=== PATIENT | male | born 1980 | race Caucasian/White ===

== ENCOUNTER → 2022-04-15 14:33 | Outpatient (CLI) | payer BC, SELFPAY ==
--- NOTE | ~2022-04-15 | MR_ITS ---
EXAMINATION: MR knee LT wo con DATE: 04/15/2022 15:09 INDICATION: Acute onset left knee pain TECHNIQUE: Magnetic resonance imaging (MRI) of the left knee was performed without intravenous contra st. Sequences included coronal PD-weighted FSE, coronal PD-weighted FS FSE, sagittal T2-weighted FSE , sagittal PD-weighted FS FSE and axial PD weighted fat saturated FSE. COMPARISON: None. FINDINGS: Medial compartment: Radial tear at the posterior horn of the medial meniscus. Partial-thickness cartilage with scattered partial thickness fissuring and chondral surface irregularity along the anterior to central weightbea ring medial femoral condyle. Additional partial thickness cartilage loss along the margins of the med ial tibial plateau with small underlying cystlike change at the posterior medial aspect of the medial tibial plateau. Lateral compartment: Lateral meniscus is normal. Small region of partial-thickness chondral fissuring at the medial aspect of the lateral tibial plateau along the shoulder the intercondylar eminence. Patellofemoral compartment: Stellate appearing chondral fissure at the central aspect of the lateral patellar facet which appears galarza near full-thickness but without degenerative subchondral changes. Remaining cartilage in the patellofemoral compartment is normal. Ligaments and tendons: Posterior cruciate ligament is normal. The anterior cruciate ligament demonstrates a normal angle rel ative to Blumensaat line. It appears thickened with increased intrasubstance signal surrounding intac t appearing linear fibers with a celery stalk appearance consistent with mucoid degeneration. The m edial collateral ligament and fibular collateral ligament complex are normal. The extensor mechanism is normal. The visualized medial and lateral hamstring tendons as well as the iliotibial band are nor mal. Fluid: Small left knee joint effusion. No loose osteochondral bodies identified. Osseous/other: Marrow edema in the central aspect of the distal femur which appears centered around the anterior cru ciate ligament origin likely related to the parent mucoid degeneration. 5 mm lesion along the physeal scar at the medial femoral condyle which follows cartilage most consistent with a small enchondroma. No fracture or other pathologic marrow replacing process. IMPRESSION: 1. Radial tear at the posterior horn of the medial meniscus. 2. 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 3. 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 Correlate with physica l exam to assess for degree of functional integrity. 4. Small left knee joint effusion. Reviewed, dictated and finalized at location B. IMPRESSION: 1. Radial tear at the posterior horn of the medial meniscus. 2. Mild tricompartmental osteoarthritis with regions of moderate grade chondrom alacia in all 3 compartments as detailed above. 3. 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 Correlate with physical exam to assess for degree of functional integrity. 4. Small left knee joint effusion.
== END ==
PROVIDERS: PCP Physician Assistant; Visit Provider Physician Assistant
DX: M25.462 Effusion, left knee (principal); M17.12 Unilateral primary osteoarthritis, left knee; S83.242A Other tear of medial meniscus, current injury, left knee, initial encounter; X58.XXXA Exposure to other specified factors, initial encounter
CPT/HCPCS: 73721